=== PATIENT | female | born 1955 | race Caucasian/White ===

== ENCOUNTER 2021-12-04 15:12 | Inpatient (IN) ==
[2021-12-04] MEDS ORDERED: Ondansetron ODT 4 MG TAB.RAPDIS SL PRN (16:47)
[2021-12-04] MEDS: Budesonide/Formoterol 80/4.5 1 PUFF INH IH SCH (21:46)
[2021-12-04] MEDS: Furosemide 40 MG TABLET PO SCH (21:56)
[2021-12-05] MEDS ORDERED: *HR* Enoxaparin 40 MG/0.4 ML SYRINGE SQ SCH (06:00)
[2021-12-05 06:11] LABS: Hematocrit 25.7 % (35.3-44.9); Lymphocytes # 1.8 K/mcL (0.6-4.6); Mean Corpuscular HGB Conc 31.1 g/dL (31.6-35.5); Mean Corpuscular Hemoglobin 26.7 pg (28.0-33.3); Mean Corpuscular Volume 85.7 fL (83.0-100.0); Mean Platelet Volume 8.6 fL (9.4-12.4); Nucleated Red Blood Cells 0.3 /100 WBC (0); Red Cell Distribution Width 13.9 % (11.5-14.5)
[2021-12-05 06:17] LABS: Platelet Count 94 K/mcL (140-400)
[2021-12-05 06:32] LABS: BUN/Creatinine Ratio 33 (6-26); Blood Urea Nitrogen 22 mg/dL (8-23); Calcium 8.3 mg/dL (8.6-10.3); Carbon Dioxide 32 mEq/L (23-29); Chloride 102 mEq/L (98-107); Glucose 78 mg/dL (70-105); Osmolality,Calculated 288 (280-300); Potassium 3.7 mEq/L (3.5-5.1); Sodium 138 mEq/L (136-145)
[2021-12-05 07:04] LABS: Monocytes # 1.1 K/mcL (0.0-1.3); Neutrophils # 8.1 K/mcL (1.6-8.9)
[2021-12-05 07:06] LABS: Platelet Estimate Decreased (Normal)
[2021-12-05] MEDS: Budesonide/Formoterol 80/4.5 1 PUFF INH IH SCH ×2 (09:25→22:08)
[2021-12-05] MEDS: Tiotropium 10 INH DOSE IH SCH (09:25)
[2021-12-05] MEDS: Aspirin Enteric Coated 81 MG Tablet PO SCH (09:55)
[2021-12-05] MEDS: dexAMETHasone 4 MG TABLET PO SCH (09:56)
[2021-12-05] MEDS: Furosemide 40 MG TABLET PO SCH ×3 (09:56→23:47)
[2021-12-05] MEDS: Valsartan 80 MG TABLET PO SCH (09:57)
[2021-12-05] MEDS: Isosorbide MONOnitrate (24 HR) 60 MG TAB.ER.24H PO SCH (09:57)
[2021-12-05] MEDS: Clotrimazole 1% CRM 15 GM TUBE TP SCH ×2 (14:30→22:56)
[2021-12-05] MEDS: Acetaminophen 325 MG TABLET PO PRN (14:40)
[2021-12-06] MEDS: Acetaminophen 325 MG TABLET PO PRN ×3 (02:35→21:55)
[2021-12-06] MEDS: Furosemide 40 MG TABLET PO SCH (08:01)
[2021-12-06] MEDS: Valsartan 80 MG TABLET PO SCH (08:02)
[2021-12-06] MEDS: dexAMETHasone 4 MG TABLET PO SCH (08:02)
[2021-12-06] MEDS: Isosorbide MONOnitrate (24 HR) 60 MG TAB.ER.24H PO SCH (08:04)
[2021-12-06] MEDS: Aspirin Enteric Coated 81 MG Tablet PO SCH (08:05)
[2021-12-06] MEDS: Clotrimazole 1% CRM 15 GM TUBE TP SCH ×2 (08:11→22:04)
[2021-12-06 08:51] LABS: Basophils % 0.2 %; Eosinophils # 0.1 K/mcL (0.0-0.6); Eosinophils % 1.3 %; Hematocrit 24.8 % (35.3-44.9); Hemoglobin 7.7 g/dL (11.5-15.4); Immature Granulocytes % 2.8 % (0-4); Lymphocytes # 1.6 K/mcL (0.6-4.6); Lymphocytes % 14.3 %; Mean Corpuscular Hemoglobin 26.7 pg (28.0-33.3); Mean Corpuscular Volume 86.1 fL (83.0-100.0); Mean Platelet Volume 8.1 fL (9.4-12.4); Monocytes # 1.2 K/mcL (0.0-1.3); Monocytes % 11.3 %; Neutrophils # 7.7 K/mcL (1.6-8.9); Nucleated Red Blood Cells 0.2 /100 WBC (0); Red Blood Count 2.88 M/mcL (3.82-4.97); Red Cell Distribution Width 14.3 % (11.5-14.5); Segmented Neutrophils % 70.1 %; White Blood Count 10.9 K/mcL (4.3-11.1)
[2021-12-06 08:53] LABS: Platelet Count 88 K/mcL (140-400)
[2021-12-06 09:16] LABS: BUN/Creatinine Ratio 36 (6-26); Blood Urea Nitrogen 22 mg/dL (8-23); Calcium 8.2 mg/dL (8.6-10.3); Carbon Dioxide 30 mEq/L (23-29); Chloride 102 mEq/L (98-107); Glucose 92 mg/dL (70-105); Magnesium 2.1 mg/dL (1.6-2.6); Osmolality,Calculated 289 (280-300); Potassium 3.7 mEq/L (3.5-5.1); Sodium 138 mEq/L (136-145)
[2021-12-06] MEDS: Budesonide/Formoterol 80/4.5 1 PUFF INH IH SCH ×2 (09:22→22:12)
[2021-12-06] MEDS: Tiotropium 10 INH DOSE IH SCH (09:22)
[2021-12-06] MEDS: Aquaphor/Maalox 50 GM BOTTLE TP SCH ×3 (12:19→22:03)
[2021-12-07] MEDS: Acetaminophen 325 MG TABLET PO PRN ×2 (05:26→15:42)
[2021-12-07] MEDS: Fluticasone Propionate Nasal 50 MCG/SPRAY BOTTLE NS PRN (05:27)
[2021-12-07 08:41] LABS: Basophils % 0.1 %; Eosinophils # 0.2 K/mcL (0.0-0.6); Eosinophils % 1.5 %; Immature Granulocytes % 2.2 % (0-4); Lymphocytes # 1.7 K/mcL (0.6-4.6); Lymphocytes % 14.9 %; Mean Corpuscular HGB Conc 30.8 g/dL (31.6-35.5); Mean Corpuscular Hemoglobin 26.7 pg (28.0-33.3); Mean Corpuscular Volume 86.7 fL (83.0-100.0); Mean Platelet Volume 8.4 fL (9.4-12.4); Monocytes # 1.4 K/mcL (0.0-1.3); Monocytes % 12.2 %; Neutrophils # 7.7 K/mcL (1.6-8.9); Nucleated Red Blood Cells 0.3 /100 WBC (0); Red Cell Distribution Width 15.1 % (11.5-14.5); Segmented Neutrophils % 69.1 %; White Blood Count 11.1 K/mcL (4.3-11.1)
[2021-12-07 08:47] LABS: Platelet Count 91 K/mcL (140-400)
[2021-12-07 09:24] LABS: BUN/Creatinine Ratio 38 (6-26); Blood Urea Nitrogen 22 mg/dL (8-23); Carbon Dioxide 29 mEq/L (23-29); Glucose 84 mg/dL (70-105); Osmolality,Calculated 285 (280-300); Sodium 136 mEq/L (136-145)
[2021-12-07 09:48] LABS: Calcium 8.4 mg/dL (8.6-10.3); Chloride 101 mEq/L (98-107)
[2021-12-07] MEDS: Budesonide/Formoterol 80/4.5 1 PUFF INH IH SCH ×2 (10:07→21:56)
[2021-12-07] MEDS: Tiotropium 10 INH DOSE IH SCH (10:07)
[2021-12-07] MEDS: Aspirin Enteric Coated 81 MG Tablet PO SCH (11:23)
[2021-12-07] MEDS: Isosorbide MONOnitrate (24 HR) 60 MG TAB.ER.24H PO SCH (11:24)
[2021-12-07] MEDS: dexAMETHasone 4 MG TABLET PO SCH (11:24)
[2021-12-07] MEDS: Aquaphor/Maalox 50 GM BOTTLE TP SCH ×3 (11:27→21:00)
[2021-12-07] MEDS: Furosemide 40 MG TABLET PO SCH ×2 (11:27→15:41)
[2021-12-07] MEDS: Clotrimazole 1% CRM 15 GM TUBE TP SCH ×2 (11:27→21:00)
[2021-12-07] MEDS: Valsartan 80 MG TABLET PO SCH (11:27)
[2021-12-07] MEDS: hydrOXYzine pamoate 25 MG CAPSULE PO PRN (15:41)
[2021-12-08] MEDS: Fluticasone Propionate Nasal 50 MCG/SPRAY BOTTLE NS PRN (06:39)
[2021-12-08] MEDS: Valsartan 80 MG TABLET PO SCH (09:29)
[2021-12-08] MEDS: Isosorbide MONOnitrate (24 HR) 60 MG TAB.ER.24H PO SCH (09:29)
[2021-12-08] MEDS: Acetaminophen 325 MG TABLET PO PRN ×2 (09:29→19:50)
[2021-12-08] MEDS: Aspirin Enteric Coated 81 MG Tablet PO SCH (09:30)
[2021-12-08] MEDS: Clotrimazole 1% CRM 15 GM TUBE TP SCH ×2 (09:30→22:24)
[2021-12-08] MEDS: Furosemide 40 MG TABLET PO SCH ×2 (09:30→16:20)
[2021-12-08] MEDS: Aquaphor/Maalox 50 GM BOTTLE TP SCH ×3 (09:30→19:49)
[2021-12-08] MEDS: Tiotropium 10 INH DOSE IH SCH (10:22)
[2021-12-08] MEDS: Budesonide/Formoterol 80/4.5 1 PUFF INH IH SCH ×2 (10:24→21:06)
[2021-12-08] MEDS: hydrOXYzine pamoate 25 MG CAPSULE PO PRN (19:50)
[2021-12-09] MEDS: Aspirin Enteric Coated 81 MG Tablet PO SCH (09:17)
[2021-12-09] MEDS: Furosemide 40 MG TABLET PO SCH ×2 (09:17→15:40)
[2021-12-09] MEDS: Isosorbide MONOnitrate (24 HR) 60 MG TAB.ER.24H PO SCH (09:18)
[2021-12-09] MEDS: Acetaminophen 325 MG TABLET PO PRN ×2 (09:18→15:37)
[2021-12-09] MEDS: Valsartan 80 MG TABLET PO SCH (09:18)
[2021-12-09] MEDS: Clotrimazole 1% CRM 15 GM TUBE TP SCH ×2 (09:19→21:03)
[2021-12-09] MEDS: Aquaphor/Maalox 50 GM BOTTLE TP SCH ×3 (09:19→20:54)
[2021-12-09] MEDS: Budesonide/Formoterol 80/4.5 1 PUFF INH IH SCH ×2 (09:57→23:04)
[2021-12-09] MEDS: Tiotropium 10 INH DOSE IH SCH (09:58)
[2021-12-09] MEDS: hydrOXYzine pamoate 25 MG CAPSULE PO PRN ×2 (15:38→23:49)
[2021-12-10] MEDS: Acetaminophen 325 MG TABLET PO PRN ×3 (01:12→20:48)
[2021-12-10 07:52] LABS: Basophils % 0.1 %; Eosinophils # 0.6 K/mcL (0.0-0.6); Eosinophils % 8.9 %; Hematocrit 27.8 % (35.3-44.9); Hemoglobin 8.5 g/dL (11.5-15.4); Immature Granulocytes % 1.3 % (0-4); Lymphocytes # 1.1 K/mcL (0.6-4.6); Lymphocytes % 15.2 %; Mean Corpuscular HGB Conc 30.6 g/dL (31.6-35.5); Mean Corpuscular Hemoglobin 27.2 pg (28.0-33.3); Mean Corpuscular Volume 88.8 fL (83.0-100.0); Mean Platelet Volume 7.9 fL (9.4-12.4); Monocytes # 1.2 K/mcL (0.0-1.3); Monocytes % 16.8 %; Neutrophils # 4.2 K/mcL (1.6-8.9); Red Blood Count 3.13 M/mcL (3.82-4.97); Red Cell Distribution Width 17.7 % (11.5-14.5); Segmented Neutrophils % 57.7 %; White Blood Count 7.2 K/mcL (4.3-11.1)
[2021-12-10 08:05] LABS: Platelet Count 76 K/mcL (140-400)
[2021-12-10 08:08] LABS: BUN/Creatinine Ratio 36 (6-26); Blood Urea Nitrogen 24 mg/dL (8-23); Calcium 8.6 mg/dL (8.6-10.3); Carbon Dioxide 29 mEq/L (23-29); Chloride 101 mEq/L (98-107); Glucose 94 mg/dL (70-105); Magnesium 2.1 mg/dL (1.6-2.6); Osmolality,Calculated 288 (280-300); Potassium 3.6 mEq/L (3.5-5.1); Sodium 137 mEq/L (136-145)
[2021-12-10] MEDS: Isosorbide MONOnitrate (24 HR) 60 MG TAB.ER.24H PO SCH (08:10)
[2021-12-10] MEDS: Aspirin Enteric Coated 81 MG Tablet PO SCH (08:10)
[2021-12-10] MEDS: Furosemide 40 MG TABLET PO SCH ×2 (08:10→16:00)
[2021-12-10] MEDS: Valsartan 80 MG TABLET PO SCH (08:11)
[2021-12-10] MEDS: hydrOXYzine pamoate 25 MG CAPSULE PO PRN ×2 (08:11→16:00)
[2021-12-10] MEDS: Clotrimazole 1% CRM 15 GM TUBE TP SCH ×2 (08:15→20:54)
[2021-12-10] MEDS: Aquaphor/Maalox 50 GM BOTTLE TP SCH ×3 (08:15→20:54)
[2021-12-10] MEDS: Budesonide/Formoterol 80/4.5 1 PUFF INH IH SCH ×2 (09:32→22:51)
[2021-12-10] MEDS: Tiotropium 10 INH DOSE IH SCH (09:33)
[2021-12-11] MEDS ORDERED: Gabapentin 100 MG CAPSULE PO ONE (02:41)
[2021-12-11] MEDS: Acetaminophen 325 MG TABLET PO PRN ×2 (07:58→22:06)
[2021-12-11] MEDS: hydrOXYzine pamoate 25 MG CAPSULE PO PRN ×3 (07:58→22:07)
[2021-12-11] MEDS: Valsartan 80 MG TABLET PO SCH (07:59)
[2021-12-11] MEDS: Aspirin Enteric Coated 81 MG Tablet PO SCH (08:00)
[2021-12-11] MEDS: Isosorbide MONOnitrate (24 HR) 60 MG TAB.ER.24H PO SCH (08:00)
[2021-12-11] MEDS: Furosemide 40 MG TABLET PO SCH ×2 (08:01→16:03)
[2021-12-11] MEDS: Aquaphor/Maalox 50 GM BOTTLE TP SCH ×3 (08:06→22:08)
[2021-12-11] MEDS: Clotrimazole 1% CRM 15 GM TUBE TP SCH ×2 (08:07→22:02)
[2021-12-11] MEDS: Tiotropium 10 INH DOSE IH SCH (09:25)
[2021-12-11] MEDS: Budesonide/Formoterol 80/4.5 1 PUFF INH IH SCH ×2 (09:25→21:47)
[2021-12-11] MEDS: Gabapentin 100 MG CAPSULE PO SCH ×2 (14:01→22:08)
[2021-12-11] MEDS ORDERED: Gabapentin 100 MG CAPSULE PO SCH (21:00)
[2021-12-11] MEDS: Fluticasone Propionate Nasal 50 MCG/SPRAY BOTTLE NS PRN (22:07)
[2021-12-11] MEDS: Nystatin POWDER 30 GM BOTTLE TP SCH (22:07)
[2021-12-12] MEDS: Budesonide/Formoterol 80/4.5 1 PUFF INH IH SCH ×2 (08:00→22:03)
[2021-12-12] MEDS: Tiotropium 10 INH DOSE IH SCH (08:00)
[2021-12-12] MEDS: Valsartan 80 MG TABLET PO SCH (08:50)
[2021-12-12] MEDS: Isosorbide MONOnitrate (24 HR) 60 MG TAB.ER.24H PO SCH (08:50)
[2021-12-12] MEDS: Gabapentin 100 MG CAPSULE PO SCH ×2 (08:51→20:56)
[2021-12-12] MEDS: Furosemide 40 MG TABLET PO SCH ×2 (08:51→16:35)
[2021-12-12] MEDS: Clotrimazole 1% CRM 15 GM TUBE TP SCH ×2 (08:51→20:53)
[2021-12-12] MEDS: Aquaphor/Maalox 50 GM BOTTLE TP SCH ×3 (08:51→20:57)
[2021-12-12] MEDS: Nystatin POWDER 30 GM BOTTLE TP SCH ×2 (08:51→20:56)
[2021-12-12] MEDS: Aspirin Enteric Coated 81 MG Tablet PO SCH (08:51)
[2021-12-12] MEDS: Acetaminophen 325 MG TABLET PO PRN ×3 (08:53→20:56)
[2021-12-12] MEDS: hydrOXYzine pamoate 25 MG CAPSULE PO PRN (14:03)
[2021-12-13] MEDS: Acetaminophen 325 MG TABLET PO PRN ×3 (08:33→23:07)
[2021-12-13] MEDS: Aspirin Enteric Coated 81 MG Tablet PO SCH (08:34)
[2021-12-13] MEDS: Isosorbide MONOnitrate (24 HR) 60 MG TAB.ER.24H PO SCH (08:35)
[2021-12-13] MEDS: Gabapentin 100 MG CAPSULE PO SCH ×2 (08:36→20:49)
[2021-12-13] MEDS: Furosemide 40 MG TABLET PO SCH ×2 (08:36→16:58)
[2021-12-13] MEDS: Valsartan 80 MG TABLET PO SCH (08:36)
[2021-12-13] MEDS: Nystatin POWDER 30 GM BOTTLE TP SCH ×2 (08:37→20:50)
[2021-12-13] MEDS: Aquaphor/Maalox 50 GM BOTTLE TP SCH ×3 (08:37→20:51)
[2021-12-13] MEDS: Clotrimazole 1% CRM 15 GM TUBE TP SCH ×2 (08:38→20:50)
[2021-12-13] MEDS: Budesonide/Formoterol 80/4.5 1 PUFF INH IH SCH ×2 (08:48→20:35)
[2021-12-13] MEDS: Tiotropium 10 INH DOSE IH SCH (08:48)
[2021-12-13 12:12] LABS: Bilirubin,Urine Negative (Negative); Blood,Urine Trace-lysed (Negative); Clarity,Urine Slightly Cloudy (Clear); Color,Urine Yellow (Yellow); Glucose,Urine (UA) Normal (Normal); Ketones,Urine Negative (Negative); Leukocyte Esterase,Urine Large (Negative); Nitrite,Urine Negative (Negative); PH,Urine 6.5 pH Units (5.0-8.0); Protein,Urine Negative (Neg-Trace); Urobilinogen,Urine Normal (Normal)
[2021-12-13 12:25] LABS: Bacteria,Urine Moderate per hpf (None-Few); RBC,Urine 0-3 per hpf (0-3); Squamous Epithelial Cell,Urine Many per hpf (None-Few)
[2021-12-13 12:26] LABS: Budding Yeast,Urine Moderate per hpf (None Seen); Hyaline Casts,Urine Few per lpf (None Seen)
[2021-12-13] MEDS: levoFLOXacin 750 MG TABLET PO SCH (15:02)
[2021-12-13] MEDS: Fluconazole 100 MG TABLET PO SCH (15:02)
[2021-12-14] MEDS: Acetaminophen 325 MG TABLET PO PRN ×2 (06:12→15:58)
[2021-12-14] MEDS: Gabapentin 100 MG CAPSULE PO SCH ×2 (08:39→21:52)
[2021-12-14] MEDS: Valsartan 80 MG TABLET PO SCH (08:39)
[2021-12-14] MEDS: Isosorbide MONOnitrate (24 HR) 60 MG TAB.ER.24H PO SCH (08:40)
[2021-12-14] MEDS: Aspirin Enteric Coated 81 MG Tablet PO SCH (08:40)
[2021-12-14] MEDS: Furosemide 40 MG TABLET PO SCH ×2 (08:40→15:57)
[2021-12-14] MEDS: Fluconazole 100 MG TABLET PO SCH (08:40)
[2021-12-14] MEDS: levoFLOXacin 750 MG TABLET PO SCH (08:40)
[2021-12-14] MEDS: Nystatin POWDER 30 GM BOTTLE TP SCH ×2 (08:41→21:50)
[2021-12-14] MEDS: Clotrimazole 1% CRM 15 GM TUBE TP SCH ×2 (08:44→21:55)
[2021-12-14] MEDS: Aquaphor/Maalox 50 GM BOTTLE TP SCH ×3 (08:46→21:50)
[2021-12-14] MEDS ORDERED: Methyl Salicylate/Menthol 85 APPL/85 GM TUBE TP PRN (08:48)
[2021-12-14 09:29] LABS: % Iron Saturation 20 % (15-50); Iron 64 mcg/dL (50-170); Transferrin 233 mg/dL (203-362)
[2021-12-14] MEDS: Tiotropium 10 INH DOSE IH SCH (09:32)
[2021-12-14] MEDS: Budesonide/Formoterol 80/4.5 1 PUFF INH IH SCH ×2 (09:32→21:03)
[2021-12-14 09:42] LABS: Folate 11.2 ng/mL (3.0-16.0)
[2021-12-14] MEDS: *HR* HYDROcodone/Acet 5/325 mg TABLET PO PRN ×2 (11:58→21:51)
[2021-12-15] MEDS: *HR* HYDROcodone/Acet 5/325 mg TABLET PO PRN ×3 (06:56→20:23)
[2021-12-15] MEDS: Furosemide 40 MG TABLET PO SCH ×2 (06:57→15:07)
[2021-12-15] MEDS: Fluconazole 100 MG TABLET PO SCH (08:06)
[2021-12-15] MEDS: Valsartan 80 MG TABLET PO SCH (08:06)
[2021-12-15] MEDS: levoFLOXacin 750 MG TABLET PO SCH (08:06)
[2021-12-15] MEDS: Gabapentin 100 MG CAPSULE PO SCH ×2 (08:06→20:07)
[2021-12-15] MEDS: Aquaphor/Maalox 50 GM BOTTLE TP SCH ×3 (08:07→20:08)
[2021-12-15] MEDS: Aspirin Enteric Coated 81 MG Tablet PO SCH (08:07)
[2021-12-15] MEDS: Nystatin POWDER 30 GM BOTTLE TP SCH ×2 (08:07→20:08)
[2021-12-15] MEDS: Isosorbide MONOnitrate (24 HR) 60 MG TAB.ER.24H PO SCH (08:07)
[2021-12-15] MEDS: Clotrimazole 1% CRM 15 GM TUBE TP SCH ×2 (08:08→20:08)
[2021-12-15] MEDS: Tiotropium 10 INH DOSE IH SCH (08:20)
[2021-12-15] MEDS: Budesonide/Formoterol 80/4.5 1 PUFF INH IH SCH ×2 (08:20→20:59)
[2021-12-16] MEDS: Acetaminophen 325 MG TABLET PO PRN ×2 (03:51→11:12)
[2021-12-16] MEDS: Aquaphor/Maalox 50 GM BOTTLE TP SCH ×3 (07:23→19:37)
[2021-12-16] MEDS: Aspirin Enteric Coated 81 MG Tablet PO SCH (07:23)
[2021-12-16] MEDS: Isosorbide MONOnitrate (24 HR) 60 MG TAB.ER.24H PO SCH (07:23)
[2021-12-16] MEDS: Nystatin POWDER 30 GM BOTTLE TP SCH ×2 (07:23→17:11)
[2021-12-16] MEDS: Valsartan 80 MG TABLET PO SCH (07:23)
[2021-12-16] MEDS: *HR* HYDROcodone/Acet 5/325 mg TABLET PO PRN ×2 (07:24→17:10)
[2021-12-16] MEDS: Furosemide 40 MG TABLET PO SCH ×2 (07:24→17:10)
[2021-12-16] MEDS: Gabapentin 100 MG CAPSULE PO SCH ×2 (07:24→19:36)
[2021-12-16] MEDS: Clotrimazole 1% CRM 15 GM TUBE TP SCH ×2 (07:24→19:37)
[2021-12-16] MEDS: levoFLOXacin 750 MG TABLET PO SCH (07:24)
[2021-12-16] MEDS: Budesonide/Formoterol 80/4.5 1 PUFF INH IH SCH ×2 (09:18→22:01)
[2021-12-16] MEDS: Tiotropium 10 INH DOSE IH SCH (09:19)
[2021-12-17] MEDS: *HR* HYDROcodone/Acet 5/325 mg TABLET PO PRN ×4 (01:34→22:50)
[2021-12-17] MEDS: Aspirin Enteric Coated 81 MG Tablet PO SCH (08:09)
[2021-12-17] MEDS: Gabapentin 100 MG CAPSULE PO SCH ×2 (08:09→21:10)
[2021-12-17] MEDS: Valsartan 80 MG TABLET PO SCH (08:10)
[2021-12-17] MEDS: Furosemide 40 MG TABLET PO SCH ×2 (08:10→16:34)
[2021-12-17] MEDS: Isosorbide MONOnitrate (24 HR) 60 MG TAB.ER.24H PO SCH (08:11)
[2021-12-17] MEDS: levoFLOXacin 750 MG TABLET PO SCH (08:11)
[2021-12-17] MEDS: Nystatin POWDER 30 GM BOTTLE TP SCH ×2 (08:14→21:11)
[2021-12-17] MEDS: Aquaphor/Maalox 50 GM BOTTLE TP SCH ×3 (08:14→21:11)
[2021-12-17] MEDS: Clotrimazole 1% CRM 15 GM TUBE TP SCH ×2 (08:15→21:11)
[2021-12-17] MEDS: Budesonide/Formoterol 80/4.5 1 PUFF INH IH SCH ×2 (08:34→20:23)
[2021-12-17] MEDS: Tiotropium 10 INH DOSE IH SCH (08:35)
[2021-12-17 09:59] LABS: Hematocrit 30.2 % (35.3-44.9); Hemoglobin 9.4 g/dL (11.5-15.4); Mean Corpuscular HGB Conc 31.1 g/dL (31.6-35.5); Mean Corpuscular Hemoglobin 28.1 pg (28.0-33.3); Mean Corpuscular Volume 90.4 fL (83.0-100.0); Mean Platelet Volume 8.9 fL (9.4-12.4); Red Blood Count 3.34 M/mcL (3.82-4.97); Red Cell Distribution Width 18.6 % (11.5-14.5); White Blood Count 4.7 K/mcL (4.3-11.1)
[2021-12-17 10:09] LABS: Platelet Count 84 K/mcL (140-400)
[2021-12-17 10:10] LABS: BUN/Creatinine Ratio 27 (6-26); Blood Urea Nitrogen 20 mg/dL (8-23); Calcium 8.9 mg/dL (8.6-10.3); Carbon Dioxide 27 mEq/L (23-29); Chloride 99 mEq/L (98-107); Glucose 131 mg/dL (70-105); Osmolality,Calculated 280 (280-300); Potassium 3.5 mEq/L (3.5-5.1); Sodium 133 mEq/L (136-145)
[2021-12-17] MEDS: Acetaminophen 325 MG TABLET PO PRN (21:10)
[2021-12-18 07:27] VITALS: BP 115/74; PULSE 68; TEMP 97.4
[2021-12-18] MEDS: Tiotropium 10 INH DOSE IH SCH (07:48)
[2021-12-18] MEDS: Budesonide/Formoterol 80/4.5 1 PUFF INH IH SCH (07:48)
[2021-12-18 07:53] VITALS: RESP 18; O2SAT 99
[2021-12-18] MEDS: Gabapentin 100 MG CAPSULE PO SCH (08:09)
[2021-12-18] MEDS: Furosemide 40 MG TABLET PO SCH ×2 (08:09→08:16)
[2021-12-18] MEDS: Aspirin Enteric Coated 81 MG Tablet PO SCH (08:09)
[2021-12-18] MEDS: Isosorbide MONOnitrate (24 HR) 60 MG TAB.ER.24H PO SCH (08:09)
[2021-12-18] MEDS: Acetaminophen 325 MG TABLET PO PRN (08:11)
[2021-12-18] MEDS: Valsartan 80 MG TABLET PO SCH (08:11)
[2021-12-18] MEDS: Clotrimazole 1% CRM 15 GM TUBE TP SCH (08:13)
[2021-12-18] MEDS: Aquaphor/Maalox 50 GM BOTTLE TP SCH (08:13)
[2021-12-18] MEDS: Nystatin POWDER 30 GM BOTTLE TP SCH (08:14)
== END 2021-12-18 13:30 | disposition home or self-care (01) | DRG 177 ==
LOC: INPPIK 20:46
PROVIDERS: ADMIT Family Medicine; ATTEND Family Medicine